=== PATIENT | female | born 1985 | race Caucasian/White ===

== ENCOUNTER 2024-11-26 13:44 | Emergency (ER) | payer OTHER, SELFPAY ==
[2024-11-26 13:45] VITALS: BP 146/99
--- NOTE | 2024-11-26 15:37 | ED.GENMED ---
History of Present Illness
<Wang Dorado, DO - Last Filed: 11/26/24 19:20>
General
Chief Complaint: Abdominal Pain
Time Seen by Provider: 11/26/24 15:00
<Enriqueta Tejeda MD, Resident - Last Filed: 11/26/24 19:09>
General
Source: patient and significant other
Nursing documentation reviewed up to this point in time: agreed with
History of Present Illness
History of Present Illness:
39-year-old female past medical history of anxiety, and multiple UTIs in the past comes to the ED due to recent right lower quadrant abdominal pain that started a few days ago. Patient says that she has been nauseous and vomiting, including 2 times
last night without any blood. This is right-sided abdominal pain also can radiate to her back. She states that she has had kidney infections in the past, and was diagnosed with a kidney condition as a kid. Her fever started yesterday afternoon
and she said that she had a temperature of around 99.3 F today which resolved following taking Motrin and Tylenol. Currently she reports no shortness of breath, chest pain, difficulty breathing. She continues to have tenderness in the right lower
quadrant of her abdomen. Says her last menstrual period was around 07 November and she is due for her period next week. She is unsure if she could possibly be at this time.
Past History
<Wang Dorado, DO - Last Filed: 11/26/24 19:20>
Past History
ED Past Medical History: None
ED Past Surgical History: Appendectomy
Social History
Tobacco: Smoker
Alcohol: Occasional
Drug: None
Personal:
Living: with family
<Enriqueta Tejeda MD, Resident - Last Filed: 11/26/24 19:09>
Past History
ED Past Medical History: Psychiatric (Anxiety)
Review of Systems
<Enriqueta Tejeda MD, Resident - Last Filed: 11/26/24 19:09>
Review of Systems
Allergies reviewed?: Yes
All Other Systems: ROS reviewed and negative except as documented in HPI and ROS
Phy Exam
<Enriqueta Tejeda MD, Resident - Last Filed: 11/26/24 19:09>
General Physical Exam
General Presentation: well appearing and mild distress
General Skin: warm and dry
General Mental: alert
General Hydration: appears well hydrated
Cardiovascular Exam
Cardiovascular Exam: regular rate/rhythm, no edema and no murmur
Pulmonary Exam
Pulmonary Exam: lungs clear, no respiratory distress, no crackles and no wheezing
Gastrointestinal Exam
Gastrointestinal Exam: normal bowel sounds, soft and non distended
Palpation: left upper quadrant: No tenderness, left lower quadrant: No tenderness, right upper quadrant: No tenderness and right lower quadrant: Moderate tenderness
Skin Exam
Skin Exam: normal color, warm/dry and no rash
Course
<Wang Dorado, DO - Last Filed: 11/26/24 19:20>
Orders/Labs/Results
Orders:
Orders
11/26/24 15:38
IV Insert/Care/Rem.- Treatment PRN
Test Result ONCE
11/26/24 15:47
Complete Blood Count/With Diff Urgent
Comprehensive Metabolic Panel Urgent
11/26/24 15:51
CT Abd/Pel (IV only)-DH only Urgent
Comment:
Reason For Exam: Right lower quadrant abdominal pain
11/26/24 15:56
HCG, Urine Qualitative Screen Urgent
Date Specimen was Collected: 11/26/24
Time Specimen was Collected: 15:50
Urinalysis Reflex To Culture Urgent
Date Specimen was Collected: 11/26/24
Time Specimen was Collected: 15:50
Urine Microscopic Reflex Cult Urgent
Urine Culture Urgent
AGUSTÍN Source: U
Specimen Description:
Date Specimen was Collected: 11/26/24
Time Specimen was Collected: 15:50
11/26/24 17:04
Acetaminophen [Tylenol] 650 mg PO NOW STA
11/26/24 18:59
Cephalexin Monohydrate [Keflex] 500 mg PO NOW STA
Abnormal Lab Results
11/26/24 11/26/24
15:47 15:56
Hgb 11.1 L g/dL
(12.0-16.0)
Hct 35.9 L %
(37.0-47.0)
MCV 74.8 L fL
(81.0-99.0)
MCH 23.1 L pg
(27.0-31.0)
MCHC 30.9 L g/dL
(33.0-37.0)
RDW 16.0 H %
(11.5-14.5)
Absolute Monos (auto) 0.9 H 10^3/uL
(0.1-0.6)
Lymphocytes % 15.1 L %
(20.5-51.1)
Monocytes % 10.4 H %
(1.7-9.3)
Glucose 100 H mg/dl
(70-99)
ALT 55 H U/L
(0-35)
Ur Occult Blood Reflex 3+ A
(Negative)
Urine Nitrite (Reflex) Positive A
(Negative)
Leukocyte Esterase Rfl 3+ A
(Negative)
Urine RBC 50-60 A /HPF
(0-2)
Urine WBC (Reflex) 60-70 A /HPF
(0-5)
Urine Bacteria (Reflex) Many A
(Negative)
Urine Albumin (Reflex) 2+ A
(Neg - Trace)
11/26/24 15:47
11/26/24 15:47
Vital Signs
Initial and Last Documented VS:
Initial Vital Signs
Temp Pulse Resp BP Pulse Ox
98.2 F 101 16 146/99 98
11/26/24 13:45 11/26/24 13:45 11/26/24 13:45 11/26/24 13:45 11/26/24 13:45
Last Documented Vital Signs
Temp Pulse Resp BP Pulse Ox
98.4 F 104 18 125/83 98
11/26/24 15:58 11/26/24 19:16 11/26/24 19:16 11/26/24 19:16 11/26/24 19:16
<Enriqueta Tejeda MD, Resident - Last Filed: 11/26/24 19:09>
Orders/Labs/Results
Orders:
Orders
11/26/24 15:38
IV Insert/Care/Rem.- Treatment PRN
Test Result ONCE
11/26/24 15:47
Complete Blood Count/With Diff Urgent
Comprehensive Metabolic Panel Urgent
11/26/24 15:51
CT Abd/Pel (IV only)-DH only Urgent
Comment:
Reason For Exam: Right lower quadrant abdominal pain
11/26/24 15:56
HCG, Urine Qualitative Screen Urgent
Date Specimen was Collected: 11/26/24
Time Specimen was Collected: 15:50
Urinalysis Reflex To Culture Urgent
Date Specimen was Collected: 11/26/24
Time Specimen was Collected: 15:50
Urine Microscopic Reflex Cult Urgent
Urine Culture Urgent
AGUSTÍN Source: U
Specimen Description:
Date Specimen was Collected: 11/26/24
Time Specimen was Collected: 15:50
11/26/24 17:04
Acetaminophen [Tylenol] 650 mg PO NOW STA
11/26/24 18:59
Cephalexin Monohydrate [Keflex] 500 mg PO NOW STA
Abnormal Lab Results
11/26/24 11/26/24
15:47 15:56
Hgb 11.1 L g/dL
(12.0-16.0)
Hct 35.9 L %
(37.0-47.0)
MCV 74.8 L fL
(81.0-99.0)
MCH 23.1 L pg
(27.0-31.0)
MCHC 30.9 L g/dL
(33.0-37.0)
RDW 16.0 H %
(11.5-14.5)
Absolute Monos (auto) 0.9 H 10^3/uL
(0.1-0.6)
Lymphocytes % 15.1 L %
(20.5-51.1)
Monocytes % 10.4 H %
(1.7-9.3)
Glucose 100 H mg/dl
(70-99)
ALT 55 H U/L
(0-35)
Ur Occult Blood Reflex 3+ A
(Negative)
Urine Nitrite (Reflex) Positive A
(Negative)
Leukocyte Esterase Rfl 3+ A
(Negative)
Urine RBC 50-60 A /HPF
(0-2)
Urine WBC (Reflex) 60-70 A /HPF
(0-5)
Urine Bacteria (Reflex) Many A
(Negative)
Urine Albumin (Reflex) 2+ A
(Neg - Trace)
11/26/24 15:47
11/26/24 15:47
Vital Signs
Initial and Last Documented VS:
Initial Vital Signs
Temp Pulse Resp BP Pulse Ox
98.2 F 101 16 146/99 98
11/26/24 13:45 11/26/24 13:45 11/26/24 13:45 11/26/24 13:45 11/26/24 13:45
Last Documented Vital Signs
Temp Pulse Resp BP Pulse Ox
98.4 F 104 18 125/83 98
11/26/24 15:58 11/26/24 19:16 11/26/24 19:16 11/26/24 19:16 11/26/24 19:16
<Enriqueta Tejeda MD, Resident - Last Filed: 11/26/24 19:09>
MDM/Problems Addressed
Differential Diagnosis Includes:
UTI, nephrolithiasis, Colitis, ectopic , ovarian torsion, ovarian cyst
MDM/Problems Addressed:
39-year-old female with past medical history of anxiety comes to the emergency department due to right lower quadrant abdominal pain that radiates to her back.
For possible UTI, will check urinalysis, CMP, CBC
Will check urine test
CT abdomen/pelvis w/ IV contrast ordered for possible colitis (history of appendectomy)
test negative, Urinalysis shows suspicion for UTI, CT Abd/Pelv will help determine if there is any Pyelonephritis/Nephrolithiasis
Pain control with Acetaminophen for now
CT Abd/Pelv showed 2cm structure along with the right ovary, most likely a cyst. Will require follow up with Gynecology in the outpatient setting
Will start patient on Keflex for her UTI and she will take that medication for 10 days in total
Chronic conditions affecting care: Kidney disease (Unspecified but has had recurrent UTIs)
<Wang Dorado, - Last Filed: 11/26/24 19:20>
*Pulse Oximetry
SaO2: 98
Oxygen Mode of Delivery: Room air
<Enriqueta Tejeda MD, Resident - Last Filed: 11/26/24 19:09>
*Pulse Oximetry
Patient hypoxic: no
*Critical Care Note
Total Time (30-74mins, 75-104mins- exclusive of procedures): Not Applicable
ED Attending Note
<Wnag Dorado DO - Last Filed: 11/26/24 19:20>
ED Attending Note
Patient seen and examined by attending physician: Yes
I performed a history and physical exam of patient and discussed management with resident, I reviewed resident's note and agree with documented findings and plan of care.: Yes
ED Attending Note:
I reviewed and agree with treatment plan by Enriqueta Tejeda MD. My exam revealed 3-year-old female with mild diffuse abdominal tenderness worse on the right side. CT abdomen pelvis shows possible ovarian cyst, likely incidentally found. Patient
has UTI we will treat with Keflex presumptively for pyelonephritis. Patient stable for discharge.
-
Portions of this chart may have been created with voice recognition software.� Occasional wrong word or��sound alike� substitutions may have occurred due to the inherent limitations of voice recognition software.
Discharge Plan
Departure
Patient Disposition: Home (Routine Discharge)
Date of Disposition: 11/26/24
Time of Disposition: 19:07
Patient with high blood pressure during this ER visit?: Yes
Condition: Fair
Discharge Problem:
Urinary tract infection
Instructions: Ovarian Cyst (DC), Urinary tract infection in adults - ED discharge instructions
Prescriptions:
New
cephalexin 500 mg capsule
500 mg PO BID 10 Days Qty: 19 0RF
No Action
vit 96-iron fum-folic 1 EACH tablet
1 ea PO DAILY
acetaminophen 325 MG tablet
650 mg PO Q4HPRN PRN (Reason: mild pain) 0RF
ibuprofen 600 MG tablet
600 mg PO Q4HPRN PRN (Reason: moderate pain/cramps) 0RF
Referrals:
Mirlande Pelaez CRNP [Family Provider]
Activity Restrictions/Additional Instructions:
As discussed please take Keflex 500mg twice a day for 10 days in total (you have received the first dose today)
As discussed you should follow up with your [employer] regarding 2cm soft structure seen in your pelvis on the CT Scan (Most likely correlating with an ovarian cyst)
If your symptoms worsen and you continue to develop worsening symptoms, please return to the ED.
Interventions
Interventions:
*Risk Screen - Suicide Last Done: 11/26/24 13:45
*Neglect/Abuse Screening Last Done: 11/26/24 13:45
Discharge Date and Time
Print Language: YEMENI
[2024-11-26 15:54] LABS: Hematocrit 35.9 % (37.0-47.0); Hemoglobin 11.1 g/dL (12.0-16.0); Mean Corp Hgb Conc. 30.9 g/dL (33.0-37.0); Mean Corpuscular Volume 74.8 fL (81.0-99.0); Nucleated Red Blood Cells % 0 %; Platelet Count 317 10^3/uL (130-400); Red Cell Dist. Width 16.0 % (11.5-14.5)
[2024-11-26 15:58] VITALS: BP 126/85
[2024-11-26 16:12] LABS: ALT (SGPT) 55 U/L (0-35); AST (SGOT) 35 U/L (14-36); Albumin 4.4 g/dl (3.5-5.0); Alkaline Phosphatase 52 U/L (38-126); Blood Urea Nitrogen 16 mg/dl (7-17); Calcium 9.2 mg/dl (8.4-10.2); Carbon Dioxide 23 mmol/L (22-30); Chloride 107 mmol/L (98-107); Glucose 100 mg/dl (70-99); Potassium 4.2 mmol/L (3.5-5.1); Sodium 137 mmol/L (135-145); Total Protein 7.8 g/dl (6.3-8.2); eGFR > 60.00
[2024-11-26 16:20] LABS: HCG, Urine Qualitative Screen Negative
[2024-11-26 16:26] LABS: Urine Character Cloudy (Clear)
[2024-11-26 16:45] LABS: Urine Red Blood Cell 50-60 /HPF (0-2); Urine Urothelial Cell 0-2 /LPF (FEW); Urine White Cell 60-70 /HPF (0-5)
[2024-11-26] MEDS: KEFLEX 500 MG PO (19:15)
[2024-11-26 19:16] VITALS: BP 125/83
== END 2024-11-26 19:21 | disposition home or self-care (01) ==
LOC: EMR 13:44
PROVIDERS: EMERGENCY PHYSICIAN Emergency Medicine; FAMILY PHYSICIAN Nurse Practitioner
DX: N39.0 Urinary tract infection, site not specified (principal); F17.200 Nicotine dependence, unspecified, uncomplicated; Z90.49 Acquired absence of other specified parts of digestive tract; R93.89 Abnormal findings on diagnostic imaging of other specified body structures
CPT/HCPCS: 99284; 74177; 80053; 81003; 81015; 81025; 85025; 87077; 87086; 87186; Q9967

== ENCOUNTER 2025-01-31 15:19 | Emergency (ER) | payer OTHER, SELFPAY ==
[2025-01-31 15:22] VITALS: BP 147/100
[2025-01-31 17:01] VITALS: BP 117/84
[2025-01-31 17:14] VITALS: BP 117/84
[2025-01-31 17:16] LABS: Urine Character Slightly Cloudy (Clear)
[2025-01-31 17:21] LABS: HCG, Urine Qualitative Screen Negative
[2025-01-31 17:36] LABS: Urine Red Blood Cell >100 /HPF (0-2); Urine Squamous Cell 26-30 /LPF (Few)
[2025-01-31] MEDS: TORADOL 15 MG IM (17:52)
--- NOTE | 2025-01-31 18:09 | ED.GENMED ---
History of Present Illness
General
Chief Complaint: Problems
Time Seen by Provider: 01/31/25 16:48
History of Present Illness
History of Present Illness:
39-year-old female without significant past medical history presenting for lower back pain and concern for . Patient notes that she had an at home test that was positive, however also had a negative test. Started to
have cramping to her lower abdomen and bleeding today as well as lower back pain which concerned her for miscarriage. Notes history of appendectomy in the past. Denies fever. Denies any injury to the back. She was taking ibuprofen at home prior
to arrival. Denies additional acute medical complaints
Past History
Past History
ED Past Medical History: Psychiatric (Anxiety)
ED Past Surgical History: Appendectomy
Social History
Tobacco: Smoker
Alcohol: Occasional
Drug: None
Personal:
Living: with family
Phy Exam
Physical Exam
Physical Exam:
General: Well-appearing, no clinical signs of dehydration, nontoxic and in no acute distress
HEENT: protecting airway
Neck: appears supple
CV: Normal heart rate, regular rhythm
Resp: No accessory muscle use, no increased work of breathing, lungs clear to auscultation bilaterally
Abd: Soft and non-distended, no tenderness to palpation
Extremities: No deformities, no swelling. No midline spinal tenderness. Mild tenderness to the lower lumbar back
Neuro: alert, no focal neurologic deficit
: deferred
Rectal: deferred
Psych: Normal affect
Skin: Intact
Course
Orders/Labs/Results
Orders:
Orders
01/31/25 16:48
Test Result ONCE
01/31/25 17:03
Fentanyl, Urine Urgent
, Urine Qualitative Screen [HCG, Urine Qualitative Screen] Urgent
Date Specimen was Collected: 01/31/25
Time Specimen was Collected: 16:57
Urinalysis Reflex To Culture Urgent
Date Specimen was Collected: 01/31/25
Time Specimen was Collected: 16:57
Urine Drug Abuse Screen Urgent
Date Specimen was Collected: 01/31/25
Time Specimen was Collected: 16:57
Urine Microscopic Reflex Cult Urgent
Urine Culture Urgent
AGUSTÍN Source: U
Specimen Description:
Date Specimen was Collected: 01/31/25
Time Specimen was Collected: 16:57
01/31/25 17:06
Add On- LAB Urgent
Tests Added?: urine drug screen
01/31/25 17:37
Ketorolac [Toradol] 15 mg IM NOW STA
Abnormal Lab Results
01/31/25
17:03
Ur Occult Blood Reflex 4+ A
(Negative)
Leukocyte Esterase Rfl 3+ A
(Negative)
Urine RBC >100 A /HPF
(0-2)
Urine Bacteria (Reflex) Few A
(Negative)
Urine Albumin (Reflex) 2+ A
(Neg - Trace)
Ur Amphetamines Screen Positive H
(Negative)
U Methamphetamines Scrn Positive H
(Negative)
U Marijuana (THC) Screen Positive H
(Negative)
Vital Signs
Initial and Last Documented VS:
Initial Vital Signs
Temp Pulse Resp BP Pulse Ox
98.5 F 88 18 147/100 98
01/31/25 15:22 01/31/25 15:22 01/31/25 15:22 01/31/25 15:22 01/31/25 15:22
Last Documented Vital Signs
Temp Pulse Resp BP Pulse Ox
98.6 F 87 20 117/84 100
01/31/25 17:14 01/31/25 17:14 01/31/25 17:14 01/31/25 17:14 01/31/25 18:13
Information
Weeks gestation: N/A
Location: N/A
MDM/Problems Addressed
MDM/Problems Addressed:
39-year-old female without significant past medical history presenting for low back pain and abdominal cramping, concern for and miscarriage. Vital signs on arrival are significant for mild hypertension which resolved without intervention.
On exam patient is resting comfortably, no acute distress or discomfort. No significant tenderness to abdomen, soft and nondistended without concern for serious intra-abdominal process or infection. No significant tenderness to the back, mild
lower lumbar bilateral tenderness. Suspect muscular component. Urine obtained, negative status. Ultimately suspect that patient is on her menstrual cycle with menstrual cramping and low back pain. Toradol administered for pain.
Patient afebrile, nontoxic without concern for infection. Ultimately feel stable for discharge with outpatient supportive therapy. Return precautions discussed and patient verbalized understanding
*Pulse Oximetry
SaO2: 100
Oxygen Mode of Delivery: Room air
Patient hypoxic: no
*Critical Care Note
Total Time (30-74mins, 75-104mins- exclusive of procedures): Not Applicable
ED Attending Note
-
Portions of this chart may have been created with voice recognition software.� Occasional wrong word or��sound alike� substitutions may have occurred due to the inherent limitations of voice recognition software.
Discharge Plan
Departure
Patient Disposition: Home (Routine Discharge)
Date of Disposition: 01/31/25
Time of Disposition: 18:14
Patient with high blood pressure during this ER visit?: Yes
Condition: Good
Discharge Problem:
Low back pain
Instructions: Low back pain (DC), Heavy periods - ED (DC)
Prescriptions:
No Action
acetaminophen 325 MG tablet
650 mg PO Q4HPRN PRN (Reason: mild pain) 0RF
ibuprofen 600 MG tablet
600 mg PO Q4HPRN PRN (Reason: moderate pain/cramps) 0RF
Referrals:
NONE,* [Family Provider, Internal Medicine]
Activity Restrictions/Additional Instructions:
You were seen in the emergency department for low back pain and vaginal bleeding
You were found to have a negative . We suspect that you are having her menstrual cycle with low back pain, muscular. Take Tylenol or Motrin as needed for pain
Please follow-up closely with your primary care physician.
Return to the emergency department for any worsening of your symptoms, or any development of chest pain, difficulty breathing, abdominal pain with persistent vomiting and inability to tolerate food or liquid by mouth (concern for dehydration),
weakness, headache or confusion, fever greater than 100.4, or any additional symptoms that are concerning to you.
Thank you for choosing [facility].
Interventions
Interventions:
*Risk Screen - Suicide Last Done: 01/31/25 15:26
*General Assessment Last Done: 01/31/25 15:22
*Neglect/Abuse Screening Last Done: 01/31/25 17:14
*ED- Fall Risk Assessment Last Done: 01/31/25 17:14
*ED COVID-19 Vaccine History Last Done: 01/31/25 17:14
*ED Influenza Vaccine History Last Done: 01/31/25 17:14
*Nursing Disposition Last Done: 01/31/25 18:25
ED-Female Genitourinary Assessment Last Done: 01/31/25 17:14
Discharge Date and Time
Discharge Date/Time: 01/31/25 18:25
Print Language: OMANI
== END 2025-01-31 18:25 | disposition home or self-care (01) ==
LOC: EMR 15:19
PROVIDERS: EMERGENCY PHYSICIAN Student in an Organized Health Care Education/Training Program
DX: M54.50 Low back pain, unspecified (principal); F41.9 Anxiety disorder, unspecified; F17.200 Nicotine dependence, unspecified, uncomplicated
CPT/HCPCS: 99284; 96372; 80306; 80307; 81003; 81015; 81025; 87077; 87086